=== PATIENT | female | born 1950 | race Two or more races ===

== ENCOUNTER 2018-01-01 18:16 | Emergency (ER) | payer OTHER ==
[~2018-01-01] VITALS: Ht 154.9 cm; Wt 68.0 kg
[~2018-01-01 18:16] MED LIST: DICLOFENAC SODI50 MG PO; FELDENE20 MG PO; LIPITOR20 MG; NORVASC5 MG
[2018-01-01] MEDS ORDERED: DICLOFENAC SODI50 MG PO (21:08)
== END 2018-01-01 21:18 | disposition home or self-care (01) ==
LOC: ER 18:16
DX: S92.342A Displaced fracture of fourth metatarsal bone, left foot, initial encounter for closed fracture (principal); S92.332A Displaced fracture of third metatarsal bone, left foot, initial encounter for closed fracture; W18.39XA Other fall on same level, initial encounter; Y93.89 Activity, other specified; Y92.098 Other place in other non-institutional residence as the place of occurrence of the external cause; Y99.8 Other external cause status

== ENCOUNTER 2022-12-16 19:55 | Emergency (ER) | payer OTHER ==
[~2022-12-16] VITALS: Ht 157.5 cm; Wt 70.8 kg
[2022-12-16] MEDS ORDERED: FAMOTIDINE20 MG PO (20:35)
[2022-12-16] MEDS ORDERED: LISINOPRIL10 MG PO (20:36)
[2022-12-16] MEDS ORDERED: BUSPIRONE HCL5 MG PO (20:36)
== END 2022-12-16 21:10 | disposition home or self-care (01) ==
LOC: ER 19:55
DX: R22.0 Localized swelling, mass and lump, head (principal); E11.9 Type 2 diabetes mellitus without complications; E78.00 Pure hypercholesterolemia, unspecified; Z86.73 Personal history of transient ischemic attack (TIA), and cerebral infarction without residual deficits; I10 Essential (primary) hypertension; G47.09 Other insomnia